=== PATIENT | female | born 1955 | race Caucasian/White ===

== ENCOUNTER 2017-01-24 21:29 | Emergency (ER) | payer OTHER ==
[2017-01-24 21:41] VITALS: BP 151/76
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
--- NOTE | 2017-01-26 08:44 | CR ---
Chest 2V FINDINGS: The heart and vascular structures are normal in appearance. No infiltrates or effusions ar e demonstrated. The skeletal structures are unremarkable. IMPRESSION: Negative exam.
== END 2017-01-24 23:30 | disposition home or self-care (01) ==
LOC: JP.ED 21:29
DX: S20.211A Contusion of right front wall of thorax, initial encounter (principal); F41.9 Anxiety disorder, unspecified; E03.9 Hypothyroidism, unspecified; Z85.828 Personal history of other malignant neoplasm of skin; Z98.890 Other specified postprocedural states; Z79.899 Other long term (current) drug therapy; W22.8XXA Striking against or struck by other objects, initial encounter
CPT/HCPCS: 71020; 71020-26; 99282; 99284

== ENCOUNTER 2019-01-16 17:19 | Emergency (ER) | payer MEDICARE, OTHER ==
[2019-01-16] MEDS ORDERED: Acetaminophen 325 MG Tab PO ONE (18:17)
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
--- NOTE | 2019-01-16 18:54 | CRLCT ---
INDICATION: Head injury. TECHNIQUE: CT head without IV contrast. FINDINGS: No acute intracranial hemorrhage, edema, or mass-effect. Small low-density focus in the right frontal lobe may be CSF within a sulcus. Minimal cerebral atrophy appropriate for age. Lateral ventricles are upper limits of normal. Slight cerebellar atrophy. Remainder negative. IMPRESSION: No acute intracranial disease. Chronic intracranial findings as above. Please note that all CT scans at this facility use dose modulation, iterative reconstruction, and/or weight-based dosing when appropriate to reduce radiation dose to as low as reasonably achievable. Dictated by Judd Gurrola MD @ Jan 16 2019 6:50PM Signed by Dr. Judd Gurrola @ Jan 16 2019 6:51PM
== END 2019-01-16 19:35 | disposition home or self-care (01) ==
LOC: JP.ED 17:19
DX: S00.93XA Contusion of unspecified part of head, initial encounter (principal); E78.00 Pure hypercholesterolemia, unspecified; E03.9 Hypothyroidism, unspecified; Z79.899 Other long term (current) drug therapy; W22.8XXA Striking against or struck by other objects, initial encounter
CPT/HCPCS: 70450; 99283; A9270